=== PATIENT | female | born 1950 | race Caucasian/White ===

== ENCOUNTER → 2017-09-04 | Outpatient (CLI) | payer MEDICARE, OTHER ==
[~2017-09-04] MED LIST: ASPI81TA94 PO; B 12 INJECTION; B12 IM; CALC-18 PO; CHOL500025 PO; CIP500 PO; DOCU-416 PO; GLUC-158 PO; LOR5 PO; MULT1TAB64 PO; OMEG500C5 PO; OXYC-865 PO; PHENA200 PO
--- NOTE | 2017-09-04 16:40 | RADIOLOGY IMAGING REPORT ---
FACILITY: [facility] [place] PATIENT NAME: ANGELITO MCPHERSON : [id number] MR: [id number] V: [id number] EXAM DATE: [id number] ORDERING PHYSICIAN: MAGALY GONZALEZ TECHNOLOGIST: Shey Rubio PROCEDURE:BILATERAL DIGITAL SCREENING MAMMOGRAM WITH CAD ASSISTED INTERPRETATION & 3D TOMOSYNTHESIS COMPARISON:Prior mammograms 09/03/16, 08/29/15, 08/05/14, 07/21/14, 07/20/14, 07/09/13. INDICATIONS:SCREENING FINDINGS: A small to moderate amount of fibroglandular tissue is seen throughout the breasts. The parenchymal pattern has remained stable allowing for difference in mammographic technique & patient positioning. There is no evidence of malignant appearing mass, malignant appearing calcifications or other secondary sign of malignancy in either breast. Surgical clip is seen in the 6 o'clock position of the Right breast. DIAGNOSTIC CATEGORY 1--NEGATIVE RECOMMENDATIONS: ROUTINE MAMMOGRAM AND CLINICAL EVALUATION. IMPRESSION: BIRADS 1: Negative. No significant abnormality is seen. Dictated by: Kaitlin Webb M.D. on 09/04/2017 at 11:02 Transcribed by: LISS on 09/04/2017 at 11:12 Approved by: Kaitlin Webb M.D. on 09/04/2017 at 16:40 [facility]
== END ==
LOC: MAMO 01:31
PROVIDERS: ATTEND Family Medicine
DX: Z12.31 Encounter for screening mammogram for malignant neoplasm of breast (principal)
CPT/HCPCS: 77063; 77067

== ENCOUNTER → 2017-11-27 | Outpatient (CLI) | payer MEDICARE, OTHER ==
[~2017-11-27] MED LIST changes: +BARIUM SULFATE 176 GM BTL PO ONE; +BARIUM SULFATE 340 GM POWD ONE
--- NOTE | 2017-11-27 11:06 | RADIOLOGY IMAGING REPORT ---
FACILITY: [facility] PATIENT NAME: Juana Gamboa : 1950 MR: [id number] V: [id number] EXAM DATE: ORDERING PHYSICIAN: MAGALY GONZALEZ TECHNOLOGIST: Location: [facility] [place] Patient: Juana Gamboa : 1950 Visit/Account:[id number] Date of Sevice: 11/27/2017 GALLBLADDER HISTORY: Epigastric pain radiating to back COMPARISON: CT abdomen and pelvis October 26, 2014 FINDINGS: Gallbladder: Unremarkable; no stones or sludge. Liver: Increased echogenicity throughout the liver can be seen with fatty infiltration other infiltra tive process Common duct: Normal, 1.8 mm diameter. Pancreas: Partially obscured by bowel, visualized aspects unremarkable. Right kidney: Right kidney appears unremarkable measuring 11.3 cm in length Upper abdominal aorta and IVC: Patent. Ascites: None visualized. IMPRESSION: Increased echogenicity throughout liver which can be seen with fatty infiltration other infiltrative process Report Dictated By: Kaitlin Webb MD at 11/27/2017 11:00 AM Report E-Signed By: Kaitlin Webb MD at 11/27/2017 11:02 AM WSN:[email or web address]
--- NOTE | 2017-11-27 13:16 | RADIOLOGY IMAGING REPORT ---
FACILITY: [facility] PATIENT NAME: Juana Gamboa : 1950 MR: [id number] V: [id number] EXAM DATE: ORDERING PHYSICIAN: MAGALY GONZALEZ TECHNOLOGIST: Location: [facility] - [place], [place] Patient: Juana Gamboa : 1950 Visit/Account:[id number] Date of Sevice: 11/27/2017 Exam type: CHEST PA AND LAT History: Cough and GERD Comparison: None. Findings: A small amount linear stranding in the left lung base may represent scarring versus atelectasis. The re is no evidence of focal infiltrates pleural effusions or pulmonary edema. The cardiac silhouette is normal in size. There are mild spondylotic changes of the upper thoracic spine IMPRESSION: 1. Mild linear stranding in the left lung base is consistent with scarring versus atelectasis Report Dictated By: Kaitlin Webb MD at 11/27/2017 1:09 PM Report E-Signed By: Kaitlin Webb MD at 11/27/2017 1:11 PM WSN:[email or web address]
--- NOTE | 2017-11-27 13:27 | RADIOLOGY IMAGING REPORT ---
FACILITY: [facility] PATIENT NAME: Juana Gamboa : 1950 MR: [id number] V: [id number] EXAM DATE: ORDERING PHYSICIAN: MAGALY GONZALEZ TECHNOLOGIST: Location: [facility] - [place] Patient: Juana Gamboa : 1950 Visit/Account:[id number] Date of Sevice: 11/27/2017 Exam type: UPPER GI SERIES W/O AIR History: Cough GERD diarrhea abdomen pain Comparison: None. Findings: Double contrast upper GI series was performed with thick and thin barium and air contrast. There is a small hiatal hernia present with moderate gastroesophageal reflux. No significant esophageal narro wing or mucosal erosion is identified no abnormality of the stomach duodenal bulb or duodenal C-loop was seen. The fluoroscopy dose area product was 1083.01 micro-Nye per meter squared IMPRESSION: 1. Small hiatal hernia with moderate gastroesophageal reflux although no significant esophageal narr owing or mucosal erosion Images of the stomach and duodenum appeared unremarkable Report Dictated By: Kaitlin Webb MD at 11/27/2017 1:19 PM Report E-Signed By: Kaitlin Webb MD at 11/27/2017 1:23 PM WSN:[email or web address]
== END ==
LOC: US 01:55
PROVIDERS: ATTEND Family Medicine
DX: K44.9 Diaphragmatic hernia without obstruction or gangrene (principal); R91.8 Other nonspecific abnormal finding of lung field; K21.9 Gastro-esophageal reflux disease without esophagitis; K76.0 Fatty (change of) liver, not elsewhere classified
CPT/HCPCS: 71046; 74240; 76705

== ENCOUNTER 2017-12-11 08:15 | Outpatient (RCR) | payer MEDICARE, OTHER ==
[~2017-12-11 08:15] MED LIST changes: -BARIUM SULFATE 176 GM BTL PO ONE; -BARIUM SULFATE 340 GM POWD ONE
[2017-12-13] MEDS ORDERED: IOPAMIDOL 76% 75 ML INFUS BTL 75 ML ONE (09:43)
--- NOTE | 2017-12-13 10:53 | RADIOLOGY IMAGING REPORT ---
FACILITY: [facility] - [place] PATIENT NAME: Juana Gamboa : 1950 MR: [id number] V: [id number] EXAM DATE: ORDERING PHYSICIAN: MAGALY GONZALEZ TECHNOLOGIST: Location: [facility] Patient: Juana Gamboa : 1950 Visit/Account:[id number] Date of Sevice: 12/13/2017 CT abdomen with IV contrast CT pelvis with IV contrast History: Left lower quadrant abdominal pain COMPARISON STUDIES: CT abdomen and pelvis 10/26/2014. TECHNIQUE: Axial CT images were obtained through the abdomen and pelvis during injection of nonioni c iodinated intravenous contrast. Reformatted coronal and sagittal images were also obtained. Contrast: 75 ml of Isovue-370 IV contrast. One of the following dose optimization techniques was utilized in the performance of this exam: Autom ated exposure control; adjustment of the mA and/or kV according to the patient's size; or use of an i terative reconstruction technique. Specific details can be referenced in the facility's radiology C T exam operational policy. FINDINGS: Chest bases: Left lower lobe subsegmental atelectasis is noted. Liver: Large liver, with right lobe measuring 19.5 cm length. The liver is diffusely hypoechoic wit h smooth margins. Hepatic and portal veins opacify completely. Gallbladder and bile ducts: Gallbladder is present. Bile ducts are normal caliber. Spleen: size is normal. Pancreas: negative Adrenal glands: negative Kidneys: Left kidney inferior pole 1 mm stone is nonobstructing, and unchanged from 2015. Mild left hydroneph rosis transitions at the UPJ, and has increased since the prior study. No stones are seen within the left ureter. There are small vessels on each side of the ureter at the UPJ that could potentially c ause partial obstruction. Right kidney is unremarkable. Pelvic structures: There are no bladder stones. Hysterectomy. Left ovarian 7 mm cyst is unchang ed from 2014. Right ovary is atrophic. Bowel and mesenteries: There is an above-average amount of solids extubated evenly throughout the co mildred. No colonic diverticula are observed. Normal appendix in the right lower abdominal quadrant. S mall bowel is unremarkable. Ascites: None Vessels: negative Musculoskeletal: Moderate lumbosacral degenerative disc change. Mild-moderate right hip degenerati ve change. Body wall: negative Lymph node assessment: negative IMPRESSION: 1. Above-average amount of solids within the colon. No evidence of diverticulosis or diverticulitis . 2. Hepatic steatosis and hepatomegaly. 3. Mild left hydronephrosis with transition at the UPJ has developed since 2014. No obstructing sto ne or mass is identified, but there are adjacent vessels at the UPJ that could cause partial obstruct ion. 4. Left kidney inferior pole 1 mm nonobstructing stone is unchanged. Report Dictated By: Sanjana Rubin MD at 12/13/2017 10:36 AM Report E-Signed By: Sanjana Rubin MD at 12/13/2017 10:49 AM WSN:[email or web address]
== END 2017-12-13 18:00 | disposition home or self-care (01) ==
LOC: CT 08:15
PROVIDERS: ATTEND Family Medicine
DX: K76.0 Fatty (change of) liver, not elsewhere classified (principal); R16.0 Hepatomegaly, not elsewhere classified; N20.0 Calculus of kidney; N13.39 Other hydronephrosis
CPT/HCPCS: 36415; 74177; 82565; 84520; Q9967

== ENCOUNTER → 2018-01-20 | Outpatient (CLI) | payer MEDICARE, OTHER ==
--- NOTE | 2018-01-21 06:40 | RT STRESS TEST REPORT ---
FACILITY: [facility] - [place] PATIENT NAME: ANGELITO MCPHERSON : [id number] MR: [id number] V: [id number] EXAM DATE: ORDERING PHYSICIAN: MELISSA REYNOLDS TECHNOLOGIST: [employer] Time: 2018-01-20 14:32:23 Total Exercise Time: 00:06:59 Test Indications: Chest Discomfort Medications: see list Protocol: SHELLIE 2 Max HR: 157 BPM 101% of Pred: 155 BPM Max BP: 164/090 mmHG Max Work Load: 8.5 METS Confirmed by JUDITH DUARTE ([id number]) on 01/21/2018 6:40:20 AM Referred By: Melissa Reynolds Overread By: JUDITH DUARTE
--- NOTE | 2018-01-21 09:36 | RADIOLOGY IMAGING REPORT ---
FACILITY: [facility] PATIENT NAME: Juana Gamboa : 1950 MR: [id number] V: [id number] EXAM DATE: ORDERING PHYSICIAN: MAGALY GONZALEZ TECHNOLOGIST: Location: [facility] Patient: Juana Gamboa : 1950 Visit/Account:[id number] Date of Sevice: 01/20/2018 EXAMINATION: Single Isotope SPECT Imaging with Exercise and Gated SPECT Imaging DATE OF EXAMINATION: 01/20/18 DATE OF INTERPRETATION: 01/21/18 REQUESTING PHYSICIAN: MAGALY GONZALEZ DO INDICATION: chest pain. PROCEDURE: After informed consent the patient received an intravenous injection of 12.5 mCi of Tc-9 9m sestamibi followed at the appropriate time interval by rest imaging. The patient then exercised a ccording to the standard Vtior protocol for 7 minutes achieving 8.5 METS. Resting heart rate was 70 bpm with a peak heart rate of 157 bpm which is 101 % of maximal predicted heart rate for age. Blood pressure at rest was 140 / 86; blood pressure during exercise was 164 / 90. There was no chest pain during exercise. Exercise was discontinued because of sob. Baseline EKG demonstrates nsr. There w ere no EKG changes of ischemia at peak exercise. Approximately one minute and 30 seconds prior to th e termination of exercise, the patient received an intravenous injection of 30.6 mCi of Tc-99m sestam ibi followed by stress imaging. RAW DATA: Examination of the summed raw data revealed a good quality study. MYOCARDIAL PERFUSION: The tomographic images demonstrate no evidence of ischemia or infarct. No TID noted. GATED IMAGES: The gated images demonstrate EF 75% without SWMA. IMPRESSION: 1. 7 min exercise tolerance without CP or diagnostic EKG changes 2. Normal myocardial perfusion scan. 3. Normal LV systolic function; LVEF 75 %. 4. Based on the results of this exam, the patient appears to be at low risk for future cardiovascular events. Report Dictated By: Patricio Burns at 01/21/2018 9:24 AM Report E-Signed By: Patricio Burns at 01/21/2018 9:32 AM WSN:[email or web address]
== END ==
LOC: NUC 01:35
PROVIDERS: ATTEND Family Medicine
DX: R07.9 Chest pain, unspecified (principal)
CPT/HCPCS: 78452; 93017; A9500

== ENCOUNTER → 2018-05-16 | Outpatient (CLI) | payer MEDICARE, OTHER ==
--- NOTE | 2018-05-16 11:10 | RADIOLOGY IMAGING REPORT ---
FACILITY: [facility] [place] PATIENT NAME: Juana Gamboa : 1950 MR: [id number] V: [id number] EXAM DATE: ORDERING PHYSICIAN: MAGALY GONZALEZ TECHNOLOGIST: Location: [facility] Patient: Juana Gamboa : 1950 Visit/Account:[id number] Date of Sevice: 05/16/2018 Chest with lateral, two views. HISTORY: Shortness of breath, chest tightness. COMPARISON: 11/27/2017. The heart size is normal. The mediastinum is unremarkable. Pulmonary vessels are normal. The lungs are voluminous. Mild streaky densities are present in the left medial lung and right medial lung ba se. No pleural fluid. Degenerative changes are present in the spine. IMPRESSION: Voluminous lungs suggesting reactive airway disease or COPD. Mild bilateral subsegmental atelectasis or pleural parenchymal scars. Report Dictated By: Christiano Payne MD at 05/16/2018 11:04 AM Report E-Signed By: Christiano Payne MD at 05/16/2018 11:06 AM WSN:[email or web address]
== END ==
LOC: RAD 10:03
PROVIDERS: ATTEND Family Medicine
DX: J20.9 Acute bronchitis, unspecified (principal)
CPT/HCPCS: 71046

== ENCOUNTER → 2018-09-26 | Outpatient (CLI) | payer MEDICARE, OTHER ==
--- NOTE | 2018-10-01 13:48 | RADIOLOGY IMAGING REPORT ---
FACILITY: [facility] PATIENT NAME: ANGELITO MCPHERSON : [id number] MR: [id number] V: [id number] EXAM DATE: [id number] ORDERING PHYSICIAN: MAGALY GONZALEZ TECHNOLOGIST: Shey Rubio PROCEDURE: BILATERAL DIGITAL SCREENING MAMMOGRAM WITH CAD ASSISTED INTERPRETATION & 3D TOMOSYNTHESIS. REASON FOR STUDY: Screening. COMPARISON: 09/04/2017 & 09/03/2016. VIEWS OBTAINED: 2D & 3D full field CC & MLO projections. BREAST DENSITY: Demonstrates scattered fibroglandular tissue elements. MAMMOGRAM FINDINGS: There is a biopsy clip in the Right breast, unchanged. There is no suspicious mass, calcification, or architectural distortion. IMPRESSION: BIRADS 2: Benign finding. DIAGNOSTIC CATEGORY 2--BENIGN FINDING. RECOMMENDATIONS: ROUTINE MAMMOGRAM AND CLINICAL EVALUATION IN 1YR. Dictated by: Darrell Coats M.D. on 10/01/2018 at 9:55 Transcribed by: LISS on 10/01/2018 at 10:01 Approved by: Darrell Coats M.D. on 10/01/2018 at 13:44 [facility]
== END ==
LOC: MAMO 03:53
PROVIDERS: ATTEND Family Medicine
DX: Z12.31 Encounter for screening mammogram for malignant neoplasm of breast (principal)
CPT/HCPCS: 77063; 77067